=== PATIENT | female | born 1950 | race Caucasian/White ===

== ENCOUNTER 2016-09-27 07:41 | Day surgery (SDC) | payer OTHER ==
[~2016-09-27] VITALS: Ht 157.5 cm; Wt 90.7 kg
[~2016-09-27 07:41] MED LIST: CYMBALTA60 MG PO; MOBIC7.5 MG PO; NEURONTIN400 MG PO; PRILOSEC20 MG PO; ULTRAM50 MG PO; ZANAFLEX4 M1 PO
== END 2016-09-27 10:25 | disposition home or self-care (01) ==
LOC: PAIN 07:41 → SDC 08:45 → PAIN 08:45
PROC: 3E0S33Z Introduction of Anti-inflammatory into Epidural Space, Percutaneous Approach (ICD-10-PCS; principal; 2016-09-27)
DX: M54.16 Radiculopathy, lumbar region (principal); M48.06 Spinal stenosis, lumbar region; M12.88 Other specific arthropathies, not elsewhere classified, other specified site; Z88.0 Allergy status to penicillin; M99.83 Other biomechanical lesions of lumbar region
CPT/HCPCS: J1030; J2250; J3010

== ENCOUNTER 2016-10-04 08:26 | Day surgery (SDC) | payer OTHER ==
[~2016-10-04] VITALS: Ht 157.5 cm; Wt 90.7 kg
[~2016-10-04 08:26] MED LIST changes: +CYMBALTA30 MG PO; +VOLTAREN50 MG PO
== END 2016-10-04 10:26 | disposition home or self-care (01) ==
LOC: PAIN 08:26 → SDC 09:15 → PAIN 10:26
PROC: 3E0S33Z Introduction of Anti-inflammatory into Epidural Space, Percutaneous Approach (ICD-10-PCS; principal; 2016-10-04)
DX: M54.16 Radiculopathy, lumbar region (principal); M48.06 Spinal stenosis, lumbar region; F41.1 Generalized anxiety disorder; M41.9 Scoliosis, unspecified; M12.88 Other specific arthropathies, not elsewhere classified, other specified site; K21.9 Gastro-esophageal reflux disease without esophagitis
CPT/HCPCS: J1030; J2250; J3010; S0020